=== PATIENT | female | born 1935 ===

== ENCOUNTER 2016-08-09 10:20 | Emergency (ER) | payer MEDICARE, OTHER | END 2016-08-09 14:35 | disposition home or self-care (01) | LOC: D.ER 10:20 | DX: S01.01XA Laceration without foreign body of scalp, initial encounter (principal); W19.XXXA Unspecified fall, initial encounter; Y93.89 Activity, other specified; Y92.012 Bathroom of single-family (private) house as the place of occurrence of the external cause; F17.200 Nicotine dependence, unspecified, uncomplicated; I10 Essential (primary) hypertension; K21.9 Gastro-esophageal reflux disease without esophagitis; J44.9 Chronic obstructive pulmonary disease, unspecified; G47.00 Insomnia, unspecified ==